=== PATIENT | female | born 1990 | race African-American/Black ===

== ENCOUNTER 2017-01-27 22:50 | Emergency (ER) | END 2017-01-28 01:48 | disposition left against medical advice (07) | LOC: ER 22:50 | DX: Z53.9 Procedure and treatment not carried out, unspecified reason (principal); R42 Dizziness and giddiness ==

== ENCOUNTER 2017-08-16 00:53 | Emergency (ER) | payer SELFPAY ==
[2017-08-16] MEDS ORDERED: CLINDAMYCIN HCL 150 MG CAPSULE PO ONE (01:49)
[2017-08-16] MEDS ORDERED: NAPROXEN 250 MG TABLET PO ONE (01:51)
--- NOTE | 2017-08-16 01:52 | ER Document Report ---
ED General - General Chief Complaint: Ear Pain Stated Complaint: LEFT EAR PAIN, TOOTHACHE Time Seen by Provider: 08/16/17 01:43 Notes: Patient is a 26-year-old female presents with complaint of left lower molar tooth pain as well as pain in her left ear. She says that the pain started first and start developed ear pain. It has been ongoing for 2-3 days. She has not seen a dentist. She has never had dental work on the specific tooth. She is a non-smoker. She does not drink. No history of drug abuse. No facial swelling. No difficulty breathing or swallowing. No other complaints at this time. TRAVEL OUTSIDE OF THE [place] IN LAST 30 DAYS: No - Related Data Allergies/Adverse Reactions: amoxicillin Allergy (Verified 08/16/17 00:57) doxycycline Allergy (Verified 08/16/17 00:57) guaifenesin [From Robitussin] Allergy (Verified 08/16/17 00:57) Past Medical History - Social History Smoking Status: Never Smoker Frequency of alcohol use: None Drug Abuse: None Family History: None - Past Medical History Cardiac Medical History: Reports: Hx Hypertension Renal/ Medical History: Denies: Hx Peritoneal Dialysis - Immunizations Hx Diphtheria, Pertussis, Tetanus Vaccination: Yes Review of Systems - Review of Systems Notes: My Normal Review Basic REVIEW OF SYSTEMS: CONSTITUTIONAL : Denies fever, chills, or sweats. Denies recent illness. EENT: Pain over left lower molar. Some ear pain. RESPIRATORY: Denies cough, cold, or chest congestion. Denies shortness of breath, difficulty breathing, or wheezing. GASTROINTESTINAL: Denies abdominal pain. Denies nausea, vomiting, or diarrhea. Denies constipation. Last BM: MUSCULOSKELETAL: Denies neck or back pain or joint pain or swelling. SKIN: Denies rash or skin lesions. NEUROLOGICAL: Denies altered mental status or loss of consciousness. Denies headache. Denies weakness or paralysis or loss of use of either side. Denies problems with gait or speech. Denies sensory or motor loss. ALL OTHER SYSTEMS REVIEWED AND NEGATIVE. Physical Exam - Vital signs Vitals: Temp Pulse Resp BP Pulse Ox 97.9 F 96 18 132/83 H 98 08/16/17 01:01 08/16/17 01:01 08/16/17 01:01 08/16/17 01:01 08/16/17 01:01 - Notes Notes: General Appearance: Well nourished, alert, cooperative, no acute distress, mild obvious discomfort. Vitals: reviewed, See vital signs table. Head: no swelling or tenderness to the head Eyes: PERRL, EOMI, Conjuctiva clear Mouth: Patient does have an impacted left lower molar with some caries and decay. No swelling around the tooth. Ear: Normal-appearing tympanic membrane on the left side. Neck: Supple, no neck tenderness, no swelling of the neck. Skin: warm, dry, appropriate color, no rash Neuro: speech clear, oriented x 3, normal affect, responds appropriately to questions. Course - Re-evaluation Re-evalutation: 08/16/17 02:14 I suspect that the patient's mental infection is causing the referred pain to the left ear. I will place him on clindamycin being that she has an allergy to penicillin. I talked her about the importance of follow-up with a dentist. I informed her return to ER immediately if she has facial swelling, neck swelling , difficulty breathing, or difficulty swallowing. Patient agrees with plan will be discharged home. Dictation of this chart was performed using voice recognition software; therefore, there may be some unintended grammatical errors. - Vital Signs Vital signs: Temp Pulse Resp BP Pulse Ox 97.9 F 96 18 132/83 H 98 08/16/17 01:01 08/16/17 01:01 08/16/17 01:01 08/16/17 01:01 08/16/17 01:01 Discharge - Discharge Clinical Impression: Pain due to dental caries Condition: Good Disposition: HOME, SELF-CARE Additional Instructions: Please take the antibiotics as prescribed. I have prescribed you some pain medication. Please take this with food. Do not take other NSAID medicaitons such as Aspirin, Motrin, Ibuprofen, Aleve, or Advil when taking this medication. It is okay to take Tylenol. Please make an appointment with a dentist as soon as possible. You will most likely have recurrent pain and further issues in the future if you do not see a dentist and have your tooth taken care of. The tooth affecting you is your left lower molar. Please return to the ER immediately if you have difficulty breathing, difficulty swallowing, fevers, increasing facial swelling, or any swelling below your left jaw. Prescriptions: Clindamycin HCl 300 mg PO ASDIR #56 capsule Naproxen [Naprosyn 250 mg Tablet] 250 mg PO BID #20 tablet
[2017-08-16 02:13] VITALS: BP 135/79
== END 2017-08-16 02:03 | disposition home or self-care (01) ==
LOC: ER 00:53
DX: K02.9 Dental caries, unspecified (principal); H92.02 Otalgia, left ear; K08.89 Other specified disorders of teeth and supporting structures
CPT/HCPCS: 99282

== ENCOUNTER 2017-10-17 00:38 | Emergency (ER) | payer SELFPAY ==
[2017-10-17] MEDS ORDERED: AZITHROMYCIN 250 MG TABLET PO ONE (01:29)
[2017-10-17] MEDS ORDERED: ONDANSETRON 4 MG TAB.RAPDIS PO ONE (01:30)
[2017-10-17] MEDS ORDERED: IBUPROFEN 800 MG TABLET PO ONE (01:30)
--- NOTE | 2017-10-17 01:34 | ER Document Report ---
HPI - HPI Patient complains to provider of: Sore throat Onset: Other - Several days Onset/Duration: Gradual, Persistent Pain Level: 5 Context: 26-year-old female with sore throat for several days increased pain and body aches and came here directly after working tonight. She is supposed to work tomorrow. No fever. States she is getting over a cold the cough is minimal at this point. Associated Symptoms: None Exacerbated by: Other - Swallowing Relieved by: Denies Similar symptoms previously: No Recently seen / treated by doctor: No - ROS ROS below otherwise negative: Yes Systems Reviewed and Negative: Yes All other systems reviewed and negative - REPRODUCTIVE LMP: 09-06-17 Past Medical History - General Information source: Patient - Social History Smoking Status: Never Smoker Frequency of alcohol use: None Drug Abuse: None Lives with: Family Family History: None - Past Medical History Cardiac Medical History: Reports: Hx Hypertension Renal/ Medical History: Denies: Hx Peritoneal Dialysis Surgical Hx: Negative - Immunizations Hx Diphtheria, Pertussis, Tetanus Vaccination: Yes Vertical Provider Document - CONSTITUTIONAL Agree With Documented VS: Yes Exam Limitations: No Limitations - INFECTION CONTROL TRAVEL OUTSIDE OF THE [place] IN LAST 30 DAYS: No - HEENT HEENT: Pharyngeal Erythema - Bright red. negative: Conjuctival Injection, Tympanic Membrane Red, Tympanic Membrane Bulging - NECK Neck: Supple, Lymphadenopathy-Left - Few anterior, Lymphadenopathy-Right - Few anterior - RESPIRATORY Respiratory: Breath Sounds Normal, No Respiratory Distress O2 Sat by Pulse Oximetry: 100 - CARDIOVASCULAR Cardiovascular: Regular Rate, Regular Rhythm - GI/ABDOMEN Gastrointestinal: Abdomen Soft, Abdomen Non-Tender, No Organomegaly - MUSCULOSKELETAL/EXTREMETIES Musculoskeletal/Extremeties: MAEW - NEURO Level of Consciousness: Awake, Alert Motor/Sensory: No Motor Deficit, No Sensory Deficit - DERM Integumentary: Warm, Dry, No Rash Course - Vital Signs Vital signs: Temp Pulse Resp BP Pulse Ox 99 F 106 H 18 138/77 H 100 10/17/17 00:46 10/17/17 00:46 10/17/17 00:46 10/17/17 00:46 10/17/17 00:46 Discharge - Discharge Clinical Impression: Sore throat Condition: Good Disposition: HOME, SELF-CARE Instructions: Sore Throat ([facility]), Azithromycin ([facility]), Acetaminophen, Use of Over -The-Counter Ibuprofen ([facility]) Additional Instructions: Drink plenty of fluids Return to the emergency room if worse Tylenol Motrin Azithromycin 250 mg for the next 4 days Prescriptions: Azithromycin [Zithromax] 250 mg PO DAILY #4 tablet Forms: Return to Work
[2017-10-17 01:57] VITALS: BP 128/64
== END 2017-10-17 01:56 | disposition home or self-care (01) ==
LOC: ER 00:38
DX: J02.9 Acute pharyngitis, unspecified (principal); R59.0 Localized enlarged lymph nodes; R05 Cough; I10 Essential (primary) hypertension
CPT/HCPCS: 99282; S0119

== ENCOUNTER 2017-11-09 22:41 | Emergency (ER) | payer SELFPAY ==
[2017-11-10] MEDS ORDERED: IPRATROPIUM/ALBUTEROL 0.5-2.5 MG/3 ML AMPUL NEB ONE (00:07)
[2017-11-10] MEDS ORDERED: PREDNISONE 20 MG TABLET PO ONE (00:08)
[2017-11-10] MEDS ORDERED: ALBUTEROL SULFATE 0.083% NEB 2.5 MG/3 ML AMPUL NEB ONE (00:09)
[2017-11-10] MEDS ORDERED: IBUPROFEN 600 MG TABLET PO ONE (00:09)
--- NOTE | 2017-11-10 00:11 | ER Document Report ---
ED General - General Chief Complaint: Breathing Difficulty Stated Complaint: COUGH,SHORTNESS OF BREATH Time Seen by Provider: 11/10/17 00:02 Mode of Arrival: Ambulatory Information source: Patient Notes: 26-year-old female with a history of asthma presents with complaint of shortness of breath and cough. Patient states cough started 4 days prior to arrival. She describes it as intermittent and not productive. Shortness of breath also started 4 days ago. She is not on any home medications for her asthma. She denies any tobacco use. She does admit to sick contacts with a son with similar symptoms. Patient has had associated headache with low-grade temperature. She denies any recent hospitalizations. Denies nausea, vomiting, chest pain, abdominal pain. She denies dysuria, hematuria. Last menstrual period was 1 month prior to arrival. She has tried [id number] cold medication without relief. She denies any history of PE or DVT. She has had no recent travel, surgery. She denies any estrogen use. Does admit to poor p.o. intake. TRAVEL OUTSIDE OF THE [place] IN LAST 30 DAYS: No - HPI Onset: Other - 4 days prior to arrival Onset/Duration: Gradual - Related Data Allergies/Adverse Reactions: amoxicillin Allergy (Verified 08/16/17 00:57) doxycycline Allergy (Verified 08/16/17 00:57) guaifenesin [From Robitussin] Allergy (Verified 08/16/17 00:57) Past Medical History - General Information source: Patient - Social History Smoking Status: Current Every Day Smoker Frequency of alcohol use: Occasional Drug Abuse: None Lives with: Family Family History: None, Reviewed & Not Pertinent Patient has suicidal ideation: No Patient has homicidal ideation: No - Past Medical History Cardiac Medical History: Reports: Hx Hypertension Pulmonary Medical History: Reports: Hx Asthma Renal/ Medical History: Denies: Hx Peritoneal Dialysis - Immunizations Hx Diphtheria, Pertussis, Tetanus Vaccination: Yes Review of Systems - Review of Systems Constitutional: See HPI, Malaise. denies: Fever EENT: No symptoms reported Cardiovascular: denies: Chest pain Respiratory: Cough, Short of breath, Wheezing Gastrointestinal: No symptoms reported Genitourinary: No symptoms reported Female Genitourinary: No symptoms reported Musculoskeletal: No symptoms reported Physical Exam - Vital signs Vitals: Temp Pulse Resp BP Pulse Ox 99.8 F 108 H 19 143/89 H 97 11/09/17 22:46 11/09/17 22:46 11/09/17 22:46 11/09/17 22:46 11/09/17 22:46 Interpretation: Normal, Hypertensive, Tachycardic. No: Febrile - General General appearance: Appears well, Alert In distress: Mild - HEENT Head: Normocephalic, Atraumatic Eyes: Normal Pupils: PERRL - Respiratory Respiratory status: No respiratory distress. No: Respiratory distress, Cyanosis , Pursed lip breathing, Retractions, Tachypnea, Tripod position Chest status: Nontender Breath sounds: Normal, Wheezing - diffuse wheezing Chest palpation: Normal - Cardiovascular Rhythm: Regular Heart sounds: Normal auscultation Murmur: No Pulses: Normal: Radial, Dorsalis pedis - Abdominal Inspection: Normal Distension: No distension Bowel sounds: Normal Tenderness: Nontender Organomegaly: No organomegaly - Back Back: Normal, Nontender - Extremities General upper extremity: Normal inspection, Nontender, Normal color, Normal ROM , Normal temperature General lower extremity: Normal inspection, Nontender, Normal color, Normal ROM , Normal temperature, Normal weight bearing. No: Becky's sign Course - Re-evaluation Re-evalutation: 11/11/17 04:19 26-year-old female with a history of asthma and current tobacco use presents with complaint of shortness of breath that started 1 day prior to arrival. Upon arrival vitals were reviewed. Patient is mildly tachycardic but not hypoxic. She is in no respiratory distress. She is able to speak in full sentences. There is no accessory muscle use. Patient received breathing treatments and on reevaluation states that she is feeling better. Wheezing has improved. MDI was provided to her through the emergency department. She was discharged home with a prescription for prednisone and smoking cessation was advised. - Vital Signs Vital signs: Temp Pulse Resp BP Pulse Ox 98.7 F 108 H 28 H 133/80 H 97 11/10/17 03:00 11/09/17 22:46 11/10/17 03:00 11/10/17 01:01 11/10/17 03:00 - Laboratory Laboratory results interpreted by me: 11/10/17 01:15 Ur Leukocyte Esterase TRACE H Discharge - Discharge Clinical Impression: CAP (community acquired pneumonia) Qualifiers: Laterality: unspecified laterality Qualified Code(s): J18.9 - Pneumonia, unspecified organism Disposition: HOME, SELF-CARE Instructions: Pneumonia ([facility]) Additional Instructions: Your chest x-ray showed that you have pneumonia. He will be prescribed antibiotics for this. If you experience worsening shortness of breath, fever for more than 72 hours please return to the emergency department. Prescriptions: Albuterol Sulfate [Proair HFA Inhalation Aerosol 8.5 gm MDI] 2 puff IH Q4H PRN # 1 mdi PRN Reason: Azithromycin [Zithromax] 250 mg PO DAILY #5 tablet Prednisone [Deltasone 20 mg Tablet] 3 tab PO DAILY 5 Days #15 tablet
[2017-11-10 01:55] LABS: APPEARANCE,URINE CLEAR; BILIRUBIN,URINE NEGATIVE (NEGATIVE); COLOR,URINE YELLOW; GLUCOSE, URINE NEGATIVE (NEGATIVE); KETONES,URINE NEGATIVE (NEGATIVE); LEUKOCYTE ESTERASE,URINE TRACE (NEGATIVE); NITRITE,URINE NEGATIVE (NEGATIVE); PROTEIN,URINE NEGATIVE (NEGATIVE); URINE SPECIFIC GRAVITY 1.011; UROBILINOGEN,URINE NEGATIVE mg/dL (<2.0)
--- NOTE | 2017-11-10 02:15 | RADIOLOGY REPORT (SQ) ---
EXAM DESCRIPTION: CHEST PA/LAT CLINICAL HISTORY: sob COMPARISON: None. FINDINGS: Frontal and lateral views of the chest. The cardiomediastinal silhouette has normal size and contour. Patchy right basilar opacity. No pneumothorax or pleural effusion. No displaced rib fractures identified. Upper abdominal soft tissues are unremarkable. IMPRESSION: 1. Patchy right basilar opacity may represent developing pneumonia.
[2017-11-10 02:57] VITALS: BP 133/80
[2017-11-10] MEDS ORDERED: AZITHROMYCIN 250 MG TABLET PO ONE (03:39)
== END 2017-11-10 04:06 | disposition home or self-care (01) ==
LOC: ER 22:41
DX: J18.9 Pneumonia, unspecified organism (principal); R06.02 Shortness of breath; R05 Cough; J45.909 Unspecified asthma, uncomplicated; R51 Headache; R50.9 Fever, unspecified; F17.200 Nicotine dependence, unspecified, uncomplicated
CPT/HCPCS: 94640 ×2; 99285; 81025; 81001; 71046; J7512; J7620

== ENCOUNTER 2018-04-18 18:16 | Emergency (ER) | payer SELFPAY ==
[2018-04-18 18:32] VITALS: BP 145/78
--- NOTE | 2018-04-18 19:03 | ER Document Report ---
HPI - HPI Patient complains to provider of: left jaw pain Onset: Last week Pain Level: 4 Context: 27-year-old female complaining of left jaw pain 1 week. No sore throat or tooth pain. No ear pain. Associated Symptoms: None Exacerbated by: Other - Chewing Relieved by: Denies Similar symptoms previously: No Recently seen / treated by doctor: No - ROS ROS below otherwise negative: Yes Systems Reviewed and Negative: Yes All other systems reviewed and negative Past Medical History - General Information source: Patient - Social History Smoking Status: Unknown if Ever Smoked Family History: None, Reviewed & Not Pertinent - Past Medical History Cardiac Medical History: Reports: Hx Hypertension Pulmonary Medical History: Reports: Hx Asthma Renal/ Medical History: Denies: Hx Peritoneal Dialysis Musculoskeletal Medical History: Reports Hx Arthritis Surgical Hx: Negative - Immunizations Hx Diphtheria, Pertussis, Tetanus Vaccination: Yes Vertical Provider Document - CONSTITUTIONAL Agree With Documented VS: Yes Exam Limitations: No Limitations - INFECTION CONTROL TRAVEL OUTSIDE OF THE [place] IN LAST 30 DAYS: No - HEENT HEENT: Normocephalic Notes: Tender at the J joint, no dental pain, ear exam is normal, no pharyngitis, no adenopathy - NECK Neck: Supple. negative: Lymphadenopathy-Left, Lymphadenopathy-Right - MUSCULOSKELETAL/EXTREMETIES Musculoskeletal/Extremeties: MAEW, Tender - See above - NEURO Level of Consciousness: Awake - DERM Integumentary: No Rash Course - Vital Signs Vital signs: Temp Pulse Resp BP Pulse Ox 98.5 F 76 18 145/78 H 99 04/18/18 18:31 04/18/18 18:31 04/18/18 18:31 04/18/18 18:31 04/18/18 18:31 Discharge - Discharge Clinical Impression: Left jaw pain, Possible TMJ Condition: Good Disposition: HOME, SELF-CARE Instructions: Acetaminophen, Ibuprofen (General) ([facility]), Temporomandibular Joint Syndrome ([facility]), Warm Packs ([facility]) Additional Instructions: Warm compress See the oral surgeon Tylenol up to 4000 mg a day for pain Motrin 800 mg 3 times a day for inflammation If there is any swelling fever drainage or tooth pain return to the emergency room Muscle relaxers may help with the jaw pain especially if this is TMJ Prescriptions: Cyclobenzaprine HCl [Flexeril 10 Mg Tablet] 10 mg PO TIDP PRN #20 tablet PRN Reason: Referrals: KRISTA RODRIGUEZ DDS [ACTIVE STAFF] - Follow up tomorrow
== END 2018-04-18 19:26 | disposition home or self-care (01) ==
LOC: ER 18:16
DX: R68.84 Jaw pain (principal); I10 Essential (primary) hypertension; J45.909 Unspecified asthma, uncomplicated
CPT/HCPCS: 99283

== ENCOUNTER 2018-04-22 00:22 | Emergency (ER) | payer SELFPAY | END 2018-04-22 03:06 | disposition left against medical advice (07) | LOC: ER 00:22 | DX: Z53.21 Procedure and treatment not carried out due to patient leaving prior to being seen by health care provider (principal) ==